=== PATIENT | female | born 1950 | race African-American/Black ===

== ENCOUNTER 2025-01-01 03:54 | Inpatient (IN) | payer OTHER, MEDICARE ==
[~2025-01-01] VITALS: Ht 157.5 cm; Wt 69.4 kg
[~2025-01-01 03:54] MED LIST: AMLO5TAB88 PO; ASPI-1160 PO; CLOP-31 PO; FAMO20TA8 PO; LEVO50TA8 PO; LIP40 PO; LISI40TA21 PO; METF-907 PO
[2025-01-01 03:57] VITALS: O2SAT 99
[2025-01-01 05:29] LABS: CREATININE 0.8 mg/dL (0.6-1.0); UREA NITROGEN BLOOD 8 mg/dL (9-23)
[2025-01-01 05:32] LABS: TROPONIN I HIGH SENSITIVITY 96 ng/L (3.0-34)
[2025-01-01 05:38] LABS: BASOPHILS % 0.6 % (0.0-2.0); EOSINOPHILS % 2.0 % (0.0-5.0); HEMATOCRIT. 45.2 % (36.0-48.0); HEMOGLOBIN. 14.7 g/dL (12.0-16.0); LYMPHOCYTES % 28.5 % (20.0-50.0); MEAN PLATELET VOLUME 8.3 fl (7.4-10.4); MONOCYTES % 8.2 % (2.0-8.0); NEUTROPHILS % 60.7 % (40.0-76.0); PLATELET 217 x1000/uL (130-400); RED BLOOD CELL COUNT 5.31 mill/uL (4.2-5.4); RED CELL DISTRIBUTION WIDTH 16.6 % (11.6-14.6)
[2025-01-01 07:24] LABS: TROPONIN I HIGH SENSITIVITY 98 ng/L (3.0-34)
[2025-01-01] MEDS ORDERED: CLONIDINE 0.1MG TABLET PO PRN (08:00)
[2025-01-01] MEDS ORDERED: ONDANSETRON HCL 4MG/2ML INJ IV PRN (08:00)
[2025-01-01] MEDS ORDERED: ACETAMINOPHEN 325MG TABLET PO PRN (08:00)
[2025-01-01 08:01] VITALS: BP 156/79; PULSE 55; RESP 18; TEMP 36.4; O2SAT 97
[2025-01-01] MEDS ORDERED: DEXTROSE 50% WATER 50ML SYRINGE IV PRN (08:15)
[2025-01-01] MEDS: INSULIN LISPRO 100 UNITS/ML SUBCUT SCH (08:20)
[2025-01-01] MEDS ORDERED: METOPROLOL TARTRATE 5MG/5ML VIAL IV PRN (08:45)
[2025-01-01] MEDS: BLOOD SUGAR DIAGNOSTIC STRIP TEST SCH (08:50)
[2025-01-01] MEDS: ASPIRIN 81MG EC TABLET PO SCH (09:01)
[2025-01-01] MEDS: AMLODIPINE 5MG TABLET PO NR (09:01)
[2025-01-01] MEDS: CLOPIDOGREL 75MG TABLET PO SCH (09:01)
[2025-01-01] MEDS: PANTOPRAZOLE SODIUM 40 MG/VIAL IV SCH (09:01)
[2025-01-01 09:34] VITALS: BP 156/79; PULSE 55; RESP 16; TEMP 36.418
[2025-01-01 12:00] VITALS: BP 138/65; PULSE 63; RESP 18; TEMP 36.5; O2SAT 96
[2025-01-01] MEDS: ENOXAPARIN 40MG/0.4ML SYR SUBCUT SCH (15:14)
[2025-01-01 16:00] VITALS: BP 115/64; PULSE 56; RESP 18; TEMP 36.6; O2SAT 96
[2025-01-01 20:00] VITALS: BP 147/69; PULSE 60; RESP 20; TEMP 36.8; O2SAT 97
[2025-01-01 21:46] LABS: INR 1.0
[2025-01-01 21:56] LABS: TRIGLYCERIDE 114 mg/dL (0-150)
[2025-01-01 21:57] LABS: CREATINE KINASE MB FRACTION < 0.5 ng/mL (0.5-3.6); LDL CHOLESTEROL 120 mg/dL (5-100)
[2025-01-01 21:58] LABS: ASPARTATE AMINOTRANSFERASE 46 IU/L (<34); BILIRUBIN DIRECT 0.3 mg/dL (<=3.0); BILIRUBIN TOTAL 0.6 mg/dL (0.1-1.0); PHOSPHORUS 3.3 mg/dL (2.5-4.9); PROTEIN TOTAL 6.5 g/dL (6.0-8.3); TROPONIN I HIGH SENSITIVITY 96 ng/L (3.0-34)
[2025-01-01 22:00] LABS: T4 FREE 1.25 ng/dL (0.89-1.76)
[2025-01-02] VITALS: BP 139/80; PULSE 82; RESP 20; TEMP 36.9; O2SAT 98
[2025-01-02 04:00] VITALS: BP 138/84; PULSE 61; RESP 18; TEMP 36.7; O2SAT 98
[2025-01-02 06:12] LABS: CLARITY URINE CLEAR (CLEAR); COLOR URINE YELLOW (YELLOW); GLUCOSE URINE NEGATIVE (NEGATIVE); KETONES URINE NEGATIVE (NEGATIVE); LEUKOCYTE ESTERASE URINE 1+ (NEGATIVE); NITRITE URINE NEGATIVE (NEGATIVE); OCCULT BLOOD URINE TRACE (NEGATIVE); PH URINE 7.5 (4.5-8.0); PROTEIN URINE NEGATIVE (NEGATIVE); SPECIFIC GRAVITY URINE 1.009 (1.005-1.030); UROBILINOGEN URINE 0.2 E.U./dL (0.2-1.0)
[2025-01-02 06:43] LABS: SQUAMOUS EPITHELIAL CELL URINE FEW /lpf (RARE/1+)
[2025-01-02 06:44] LABS: RBC URINE 0-2 /hpf (0-2)
[2025-01-02 06:46] LABS: BACTERIA URINE TRACE
[2025-01-02 06:47] LABS: *AMPHETAMINES SCREEN URINE NEGATIVE (NEGATIVE); *BARBITURATES SCREEN URINE NEGATIVE (NEGATIVE); *BENZODIAZEPINES SCREEN URINE NEGATIVE (NEGATIVE); *COCAINE SCREEN URINE NEGATIVE (NEGATIVE); CANNABINOID URINE SCREEN NEGATIVE (NEGATIVE); ECSTASY MDMA SCREEN URINE NEGATIVE (NEGATIVE); METHADONE URINE SCREEN NEGATIVE (NEGATIVE); OPIATES URINE SCREEN NEGATIVE (NEGATIVE); PHENCYCLIDINE URINE SCREEN NEGATIVE (NEGATIVE)
[2025-01-02 08:00] VITALS: BP 133/57; PULSE 54; RESP 18; TEMP 35.6; O2SAT 98
[2025-01-02 12:00] VITALS: BP 132/67; PULSE 63; RESP 18; TEMP 36.3; O2SAT 98
[2025-01-02] MEDS: NITROGLYCERIN SPRAY/4.9GM CAN TL ONE (13:05)
[2025-01-02 13:50] LABS: CREATINE KINASE MB FRACTION 0.5 ng/mL (0.5-3.6); CREATININE 0.7 mg/dL (0.6-1.0); UREA NITROGEN BLOOD 7 mg/dL (9-23)
[2025-01-02 14:02] LABS: TROPONIN I HIGH SENSITIVITY 110 ng/L (3.0-34)
[2025-01-02 16:00] VITALS: BP 112/61; PULSE 59; RESP 18; TEMP 36.3; O2SAT 95
[2025-01-02 20:00] VITALS: BP 125/69; PULSE 63; RESP 20; TEMP 36.7; O2SAT 97
[2025-01-03] VITALS: BP 142/82; PULSE 62; RESP 18; TEMP 37; O2SAT 97
[2025-01-03 08:00] VITALS: BP 154/79; PULSE 72; RESP 18; TEMP 36.7; O2SAT 97
[2025-01-03 09:38] VITALS: BP 148/52; PULSE 72; RESP 18; TEMP 96.7
== END 2025-01-03 14:42 | disposition home or self-care (01) | DRG 311 ==
LOC: ER 03:54 → 8WST 05:44 → EDBEDREQTM 05:49 → EDBEDREQ 05:49 → ENRESERV 07:01
PROVIDERS: ADMIT Internal Medicine; ATTEND Internal Medicine
DX: I24.9 Acute ischemic heart disease, unspecified (principal); M79.18 Myalgia, other site; E11.65 Type 2 diabetes mellitus with hyperglycemia; I10 Essential (primary) hypertension; E03.9 Hypothyroidism, unspecified; E78.5 Hyperlipidemia, unspecified; I25.10 Atherosclerotic heart disease of native coronary artery without angina pectoris; Z79.02 Long term (current) use of antithrombotics/antiplatelets; I25.2 Old myocardial infarction; Z79.899 Other long term (current) drug therapy; Z82.49 Family history of ischemic heart disease and other diseases of the circulatory system; Z86.73 Personal history of transient ischemic attack (TIA), and cerebral infarction without residual deficits; Z98.61 Coronary angioplasty status
CPT/HCPCS: 36415; 71045; 75571; 80048; 80061; 80076; 80305; 81003; 82550; 82553; 82962; 83036; 83735; 83880; 84100; 84439; 84443; 84484; 85025; 85379; 93005; 93306; 93970; 99291; J1650; J2470